=== PATIENT | male | born 1980 | race Asian ===

== ENCOUNTER 2021-10-03 08:26 | Outpatient (CLI) | payer OTHER ==
[~2021-10-03] VITALS: Ht 177.8 cm; Wt 86.2 kg
[2021-10-03] MEDS ORDERED: albuterol 2.5 MG/3 ML nebule NEB PRN (09:10)
== END 2021-10-03 23:59 | disposition home or self-care (01) ==
LOC: RT 08:26
PROVIDERS: ATTEND Chiropractor
DX: J45.909 Unspecified asthma, uncomplicated (principal); Z87.891 Personal history of nicotine dependence; Z79.899 Other long term (current) drug therapy
CPT/HCPCS: 94060; 94760